=== PATIENT | male | born 1995 | race Caucasian/White ===

== ENCOUNTER 2018-11-16 07:37 | Emergency (ER) | payer OTHER ==
[2018-11-16 07:44] VITALS: O2SAT 100
[2018-11-16 07:51] VITALS: TEMP 98.5
[2018-11-16 07:52] VITALS: BMI 32.4
--- NOTE | 2018-11-16 08:25 | ED PDOC ---
HPI: Back Time Seen by Provider: 11/16/18 08:01 Chief Complaint (Nursing): Back Pain Chief Complaint (Provider): Back Pain History Per: Patient History/Exam Limitations: no limitations Onset/Duration Of Symptoms: Days (x1 week) Current Symptoms Are (Timing): Still Present Additional Complaint(s): Patient is a 23 year old male with no past medical history, who presents to the emergency department complaining of right flank pain that radiates to the front, onset x1 week. He states that the pain is worse when lifting or stretching his right arm above his head. Patient denies having any injury, urinary symptoms, fever, nausea, vomiting or diarrhea. PMD: Non [facility] provider Past Medical History Reviewed: Historical Data, Nursing Documentation, Vital Signs Vital Signs: Last Vital Signs Temp 98.5 F 11/16/18 07:43 Pulse 64 11/16/18 07:43 Resp 17 11/16/18 07:43 BP 129/74 11/16/18 07:43 Pulse Ox 100 11/16/18 07:43 - Medical History PMH: No Chronic Diseases - Surgical History Surgical History: No Surg Hx - Family History Family History: States: Unknown Family Hx - Home Medications Home Medications: Ambulatory Orders Medication Instructions Recorded Cyclobenzaprine [Cyclobenzaprine 10 mg PO TID #10 tab 11/16/18 HCl] Naproxen [Naprosyn] 500 mg PO Q12H #20 tab 11/16/18 - Allergies Allergies/Adverse Reactions: Allergies Allergy/AdvReac Type Severity Reaction Status Date / Time No Known Allergies Allergy Verified 11/16/18 08:05 Review of Systems ROS Statement: Except As Marked, All Systems Reviewed And Found Negative Constitutional: Negative for: Fever Gastrointestinal: Negative for: Nausea, Vomiting, Diarrhea Genitourinary Male: Negative for: Dysuria, Frequency, Incontinence, Hematuria Musculoskeletal: Positive for: Other (Right flank pain) Physical Exam - Reviewed Nursing Documentation Reviewed: Yes Vital Signs Reviewed: Yes - Physical Exam Appears: Positive for: Non-toxic, No Acute Distress Head Exam: Positive for: ATRAUMATIC, NORMOCEPHALIC Skin: Positive for: Normal Color, Warm, Dry Eye Exam: Positive for: Normal appearance, EOMI, PERRL ENT: Positive for: Normal ENT Inspection Neck: Positive for: Normal, Painless ROM, Supple Cardiovascular/Chest: Positive for: Regular Rate, Rhythm. Negative for: Murmur Respiratory: Positive for: Normal Breath Sounds. Negative for: Respiratory Distress Gastrointestinal/Abdominal: Positive for: Normal Exam, Soft. Negative for: Tenderness Back: Negative for: Vertebral Tenderness (midline spinal tenderness), Muscle Spasm, Other (deformity) Extremity: Positive for: Normal ROM. Negative for: Pedal Edema, Deformity Neurological/Psych: Positive for: Alert, Oriented - ECG O2 Sat by Pulse Oximetry: 100 (RA) Pulse Ox Interpretation: Normal Medical Decision Making Medical Decision Making: Time: 809 Plan: --urinalysis Scribe Attestation: Documented by Jaydon Rodriguez, acting as a scribe Keyla Ashford MD. Provider Scribe Attestation: All medical record entries made by the Scribe were at my direction and personally dictated by me. I have reviewed the chart and agree that the record accurately reflects my personal performance of the history, physical exam, medical decision making, and the department course for this patient. I have also personally directed, reviewed, and agree with the discharge instructions and disposition. Disposition - Clinical Impression Clinical Impression: Back strain - Patient ED Disposition Is Patient to be Admitted: No Counseled Patient/Family Regarding: Studies Performed, Diagnosis, Need For Followup, Rx Given - Disposition Referrals: [facility] [Outside] Disposition: Routine/Home Disposition Time: 10:08 Condition: FAIR Prescriptions: Cyclobenzaprine [Cyclobenzaprine HCl] 10 mg PO TID #10 tab Naproxen [Naprosyn] 500 mg PO Q12H #20 tab Instructions: Muscle Strain, Low Back Pain in Adults Forms: [employer] (Faroese)
[2018-11-16 09:56] LABS: URINE BILIRUBIN NEGATIVE (NEGATIVE); URINE BLOOD NEGATIVE (NEGATIVE); URINE CLARITY CLEAR (Clear); URINE COLOR STRAW (YELLOW); URINE GLUCOSE (UA) NEG (NEGATIVE); URINE LEUKOCYTE ESTERASE NEG Leu/uL (Negative); URINE PROTEIN NEGATIVE (NEGATIVE); URINE UROBILINOGEN 0.2-1.0 mg/dL (0.2-1.0)
[2018-11-16 10:58] VITALS: BP 126/76; PULSE 70; RESP 18
== END 2018-11-16 10:30 | disposition home or self-care (01) ==
LOC: H.ER 07:37
DX: S39.012A Strain of muscle, fascia and tendon of lower back, initial encounter (principal); X58.XXXA Exposure to other specified factors, initial encounter; Y92.89 Other specified places as the place of occurrence of the external cause